=== PATIENT | female | born 1955 | race Caucasian/White ===

== ENCOUNTER 2020-06-24 14:54 | Emergency (ER) | payer MEDICARE, OTHER ==
[2020-06-24 15:21] VITALS: TEMP 98.4
[2020-06-24] MEDS ORDERED: ALUM & MAG HYDROX-SIMETHICONE 30 ML, LIDOCAINE VISCOUS 2% 15 ML PO ONE ×2 (15:24)
--- NOTE | 2020-06-24 15:32 | ED.PDOC ---
History of Present Illness - General Chief Complaint: Chest Pain/AK Stated Complaint: heartburn/nausea Time Seen by Provider: 06/24/20 15:15 Source: patient - History of Present Illness Initial Comments: PATIENT PRESENTS W/ 24 HOUR HX OF BURNING EPIGASTRIC PAIN, NOT RELIEVED WITH ANTACIDS, DENIES HX OF GERD OR SIMILAR SYMPTOMS IN THE PAST, NO HEALTH PROBLEMS, NO ROUINE MEDS, +SLIGHT SOB, NO DIAPHORESIS OR NAUSEA. Location: substernal Chest Pain Radiation: no radiation Activities at Onset: none Prior Chest Pain/Cardiac Workup: no prior chest pain Improving Factors: nothing Worsening Factors: nothing Allergies/Adverse Reactions: Allergies NO KNOWN ALLERGY Allergy (Verified 06/24/20 15:23) Home Medications: Ambulatory Orders Omeprazole [Omeprazole Dr] 40 mg PO DAILY #30 cap 06/24/20 Review of Systems - Review of Systems Constitutional: States: no symptoms reported EENTM: States: no symptoms reported Respiratory: States: see HPI. Denies: cough, short of breath Cardiology: States: see HPI Gastrointestinal/Abdominal: States: no symptoms reported Genitourinary: States: no symptoms reported Musculoskeletal: States: no symptoms reported Skin: States: no symptoms reported Neurological: States: no symptoms reported Past Medical History (General) - Patient Medical History Hx Stroke: No Hx of COPD: No Hx Cardiac Disorders: No Hx Hypertension: Yes Hx Gastroesophageal Reflux: Yes - Vaccination History Hx Influenza Vaccination: Yes - Social History Hx Alcohol Use: No - Activities of Daily Living Hospice Agency (if applicable):: None - Female History Patient is a Female of Child Bearing Age (10 -59 yrs old): No Family Medical History - Family History Father Living Status: Physical Exam - Physical Exam General Appearance: Alert, Anxious, No apparent distress Eyes, Ears, Nose, Throat Exam: normal ENT inspection, TMs normal, pharynx normal, scleral icterus (R) Neck: non-tender, full range of motion, supple Respiratory: lungs clear, normal breath sounds, no respiratory distress, respiratory distress Cardiovascular/Chest: normal peripheral pulses, regular rate, rhythm, no edema, other - PALPATION OF CHEST REPRODUCES HER PAIN Gastrointestinal/Abdominal: normal bowel sounds, non tender, soft Departure - Departure Clinical Impression: Chest pain Qualifiers: Chest pain type: unspecified Qualified Code(s): R07.9 - Chest pain, unspecified Time of Disposition: 17:49 Disposition: Discharge to Home or Self Care Condition: Good Departure Forms: ED Discharge - Pt. Copy, Patient Portal Self Enrollment Instructions: DI for Chest Pain, Acid Reflux and Gastroesophageal Reflux Disease in Adults, Chest Pain Referrals: MICHELLE PIRES [Primary Care Provider] - 1-2 Weeks Prescriptions: Omeprazole [Omeprazole Dr] 40 mg PO DAILY #30 cap Home Medications: Ambulatory Orders Omeprazole [Omeprazole Dr] 40 mg PO DAILY #30 cap 06/24/20 Additional Instructions: RECOMMEND FOLLOW UP WITH GENERAL SURGERY OR GI MEDICINE FOR UPPER ENDOSCOPY (EGD).
--- NOTE | 2020-06-24 15:34 | RAD ---
EXAM DESCRIPTION: Chest,1 View x-ray CLINICAL HISTORY: 65 years Female, chest pain COMPARISON: None. IMPRESSION: Heart size and pulmonary vascularity are within normal limits. There is no airspace consolidation, pleural effusion, or pneumothorax. No acute osseous abnormality. Electronically signed by: Silverio Perera MD 06/24/2020 3:32 PM [facility]
[2020-06-24] MEDS ORDERED: HYDROmorphone HCL INJ 2 MG/ML VIAL IV ONE (16:14)
[2020-06-24] MEDS ORDERED: ONDANSETRON INJ 4 MG/2 ML VIAL IV ONE (16:15)
--- NOTE | 2020-06-24 17:05 | CT ---
EXAM DESCRIPTION: CTA Chest CLINICAL HISTORY: 65 years, Female, R/O PE, AAA COMPARISON: None TECHNIQUE: CT pulmonary angiography is performed with thin-section multi detector technique during rapid bolus administration of routine adult dose of nonionic iodinated IV contrast media. Multiplanar reformatted images are reviewed along with source images and maximum intensity projection three dimensional images which were created on a separate dedicated workstation and are stored in the patient's medical record. FINDINGS: Normal enhancement of pulmonary arteries. Normal enhancement of cardiac chambers. Early enhancement of the aorta is negative for aneurysm or dissection. Lung window images are negative for infiltrate. Discoid atelectasis or linear scarring in the medial left lung base. No worrisome mass or nodule. In the upper abdomen, upper abdominal viscera are unremarkable. No chest wall mass or rib fracture. No axillary or lower cervical adenopathy. Breast implants appear intact. Coronal and sagittal reformatted MIP images confirm normal pulmonary arterial enhancement. No aortic aneurysm or dissection. IMPRESSION: Negative for evidence of pulmonary embolic disease. This exam was performed according to our departmental dose-optimization program, which includes automated exposure control, adjustment of the mA and/or kV according to patient size and/or use of iterative reconstruction technique. Total DLP equals 612.9 mGycm. Electronically signed by: Boo Chavez MD 06/24/2020 5:03 PM MARKETING EFFECTIVENESS MANAGER
[2020-06-24] MEDS ORDERED: PANTOPRAZOLE SODIUM TAB 40 MG PO ONE (17:53)
[2020-06-24 18:07] VITALS: BP 134/99; O2SAT 98
== END 2020-06-24 18:01 | disposition home or self-care (01) ==
LOC: ER 14:54
DX: R07.9 Chest pain, unspecified (principal); I10 Essential (primary) hypertension; R06.02 Shortness of breath
CPT/HCPCS: 36415; 71045; 71275; 80053; 84484; 85025; 85379; 93005; J1170; J2405

== ENCOUNTER 2020-07-30 13:23 | Emergency (ER) | payer MEDICARE, OTHER ==
--- NOTE | 2020-07-30 13:22 | US ---
EXAM DESCRIPTION: Venous,Lower Extremity LT: ULTRASOUND. CLINICAL HISTORY: SWELLING LOWER LEG COMPARISON: None Available. TECHNIQUE: Seals-scale and doppler sonographic evaluation of the deep venous system of the left lower extremity. FINDINGS: Doppler and grayscale evaluation of the left lower extremity shows diminished or absent waveforms in the left popliteal artery, left posterior tibial artery, and left peroneal artery with lack of augmentation. Echogenic thrombus in these veins which are not compressible with the transducer. Doppler evaluation shows normal color flow and normal phasicity and augmentation of the left common femoral vein, tab femoral vein, and greater saphenous vein, junction with the CFV. These left lower extremity deep veins were completely compressible; normal occlusion with transducer pressure. Seals-scale survey showed no echogenic thrombus within these veins. Subcutaneous adipose tissue with interstitial edema. IMPRESSION: 1. Duplex ultrasound evaluation of the left lower extremity deep venous system demonstrating thrombosis from the left popliteal vein down to the left posterior tibial vein and left peroneal vein.. Associated subcutaneous adipose tissue edema in the left calf. 2. The more proximal left lower extremity deep veins show no evidence of thrombosis. . CRITICAL COMMUNICATION: The critical value was communicated directly by Dr. Cardoso via phone call, with AMINA HayP, at approximately 1315 hours, on July 30, 2020. Ms. Valladares will contact the patient directly for further instructions. Electronically signed by: Jesus Manuel Cardoso MD 07/30/2020 1:21 PM [facility]
--- NOTE | 2020-07-30 15:43 | CT ---
CT CHEST ANGIOGRAPHY WITH IV CONTRAST HISTORY: 65 years Female LLE DVT PER U/S, SOB. EVAL FOR P.E. COMPARISON: June 24, 2020. TECHNIQUE: Helical tomographic images of the chest were obtained after the administration of intravenous contrast per facility angiogram protocol. 3-D MIP reconstructions were created. Coronal and sagittal reformatted images were also provided. This exam was performed according to our departmental dose-optimization program, which includes automated exposure control, adjustment of the mA and/or kV according to patient size and/or use of iterative reconstruction technique. FINDINGS: Diagnostic quality: Adequate. Pulmonary arteries: Scattered emboli within the bilateral segmental arteries as well as the right middle and lower lobe arteries. The majority of these thrombi appear incompletely occlusive. Lungs and central airways: No consolidation or airspace disease identified. Pleura: No pleural effusion or pleural thickening. Heart/pericardium: Heart size is normal. Slight bowing of the intraventricular septum suggests possible right heart strain. Trace pericardial fluid. Mediastinum/haley: No mediastinal or hilar mass or lymphadenopathy. Systemic vasculature: Minimal scattered atherosclerotic changes. Regional surrounding soft tissues: No acute process detected. Bilateral breast implants. Bones: No acute process detected. Included abdomen: There is diffuse hypoattenuation of the liver, compatible with hepatic steatosis. No acute process detected. IMPRESSION: Scattered bilateral pulmonary emboli with suspicion of right heart strain. Finding was relayed to the referring provider, Dr. Monroy, at approximately 3:40 PM on 07/30/2020. Hepatic steatosis. Electronically signed by: Martin Bennett MD 07/30/2020 3:41 PM SUPER[employer]OR [employer]
--- NOTE | 2020-07-30 15:48 | ED.PDOC ---
History of Present Illness - General Chief Complaint: General Stated Complaint: DVT LLE,sent for evaluation Time Seen by Provider: 07/30/20 13:46 Source: patient Exam Limitations: no limitations - History of Present Illness Initial Comments: RECENT LONG CAR RIDE TO [place]. 1 WK MILD DYSPNEA WITH EXERTION AND FATIGUE, L FOOT AND ANKLE PAIN. WENT TO URGENT CARE TODAY, U/S SHOWED DVT OF L POPLITEAL, POST TIBIAL, AND PERONAL VEINS. SENT TO ER TO EVAL FOR P.E. Severity: moderate Improving Factors: immobilization Worsening Factors: movement Associated Symptoms: shortness of breath, weakness Allergies/Adverse Reactions: Allergies Codeine Allergy (Verified 07/30/20 13:42) Home Medications: Ambulatory Orders Apixaban [Eliquis] 10 mg PO BID 3 Days #6 tab 07/30/20 Review of Systems - Review of Systems Constitutional: States: no symptoms reported EENTM: States: no symptoms reported Respiratory: States: short of breath. Denies: cough Cardiology: Denies: chest pain, palpitations Gastrointestinal/Abdominal: Denies: abdominal pain, nausea Genitourinary: States: no symptoms reported Musculoskeletal: States: other - LLE PAIN. Denies: back pain, neck pain Skin: States: no symptoms reported. Denies: change in color Neurological: States: no symptoms reported Endocrine: States: no symptoms reported Hematologic/Lymphatic: States: no symptoms reported All other Systems: Reviewed and Negative Past Medical History (General) - Patient Medical History Hx Stroke: No Hx of COPD: No Hx Cardiac Disorders: No Hx Congestive Heart Failure: No Hx Hypertension: Yes Hx Diabetes: No Hx Gastroesophageal Reflux: Yes Surgical History: appendectomy - Vaccination History Hx Influenza Vaccination: No Hx Pneumococcal Vaccination: No - Social History Hx Tobacco Use: No Hx Alcohol Use: No Family Medical History - Family History Father Living Status: Physical Exam - Physical Exam General Appearance: Alert, No apparent distress Eye Exam: bilateral normal Ears, Nose, Throat: hearing grossly normal, normal ENT inspection Neck: non-tender, full range of motion Respiratory: lungs clear, normal breath sounds, no respiratory distress, no accessory muscle use Cardiovascular/Chest: normal peripheral pulses, no gallop, no JVD, no murmur Peripheral Pulses: radial,right: 2+, radial,left: 2+, femoral,right: 2+, femoral,left: 2+, popliteal,right: 2+, popliteal,left: 2+, dorsalis pedis,right: 2+, dorsalis pedis,left: 1+, posterior tibialis,right: 2+, posterior tibialis,left: 0 Gastrointestinal/Abdominal: non tender, soft Rectal Exam: deferred Back Exam: normal inspection Extremity: no calf tenderness, pedal edema, other - L ANKLE MILDLY EDEMATOUS. NO STREAKING. POS ABE'S SIGN LEFT. Neurologic: no motor/sensory deficits, alert, normal mood/affect Skin Exam: normal color, warm/dry Lymphatic: no adenopathy Progress - Progress Progress: 07/30/20 15:[address] POS FOR P.E. EKG SHOWS PAC AND PVC'S. I TALKED WITH VASCULAR SURGERY, DR. OTERO, FOR RECOMMENDATIONS. SINCE SHE IS STABLE (NO TACHYCARDIA, NO TACHYPNEA, NO HYPOXIA), SHE DOES NOT NEED ADMISSION AND WE WILL START ELIQUIS TODAY (10 MG BID X 7 D, THEN 5 MG BID). SHE WILL F/U WITH DR. RANDLE TOMORROW AM TO MANAGE. I GAVE RETURN PRECAUTIONS. 07/30/20 16:09 DIALUDID FOR FOOT PAIN FROM DVT, ALEVE DID NOT HELP. (PT STATES SHE IS NOT ALLERGIC TO CODEINE, JUST UPSET STOMACH IF TAKES W/O FOOD.) PTT AND INR WNL. Departure - Departure Clinical Impression: Pulmonary embolism Qualifiers: Pulmonary embolism type: multiple subsegmental (without acute cor pulmonale) Qualified Code(s): I26.94 - Multiple subsegmental pulmonary emboli without acute cor pulmonale DVT (deep venous thrombosis) Qualifiers: DVT location: lower extremity Affected thrombotic vein of extremity: popliteal Chronicity: acute Laterality: left Qualified Code(s): I82.432 - Acute embolism and thrombosis of left popliteal vein Disposition: Discharge to Home or Self Care Condition: Good Departure Forms: ED Discharge - Pt. Copy, Patient Portal Self Enrollment Instructions: Pulmonary Embolism (Blood Clot in the Lungs) (DC) Diet: resume usual diet Activity: walking as tolerated Referrals: Adria Randle MD [Provisional Staff] - 07/31/20 Prescriptions: Apixaban [Eliquis] 10 mg PO BID 3 Days #6 tab Home Medications: Ambulatory Orders Apixaban [Eliquis] 10 mg PO BID 3 Days #6 tab 07/30/20
[2020-07-30] MEDS ORDERED: HYDROmorphone HCL INJ 2 MG/ML VIAL IV ONE (16:07)
[2020-07-30] MEDS ORDERED: APIXABAN 5 MG TAB PO ONE (16:11)
[2020-07-30 16:43] VITALS: BP 159/106; TEMP 99.6; O2SAT 94
== END 2020-07-30 16:43 | disposition home or self-care (01) ==
LOC: ER 13:23
DX: I26.94 Multiple subsegmental thrombotic pulmonary emboli without acute cor pulmonale (principal); I82.432 Acute embolism and thrombosis of left popliteal vein; I49.1 Atrial premature depolarization; I49.3 Ventricular premature depolarization; I10 Essential (primary) hypertension; K21.9 Gastro-esophageal reflux disease without esophagitis; Z90.49 Acquired absence of other specified parts of digestive tract; Z88.5 Allergy status to narcotic agent
CPT/HCPCS: 36415; 71275; 80053; 85025; 85379; 85610; 85730; 93005; 93971; J1170

== ENCOUNTER → 2020-08-01 | Outpatient (CLI) | payer MEDICARE, OTHER | LOC: ECHO 13:01 | PROVIDERS: ATTEND Family Medicine Sports Medicine | DX: I26.94 Multiple subsegmental thrombotic pulmonary emboli without acute cor pulmonale (principal) ==

== ENCOUNTER → 2020-08-30 | Outpatient (CLI) | payer MEDICARE, OTHER ==
--- NOTE | 2020-08-30 10:50 | CT ---
EXAM DESCRIPTION: CTA Chest CLINICAL HISTORY: 65 years, Female, ACUTE EMBOLISM COMPARISON: Previous CTA chest dated July 30, 2020 TECHNIQUE: CT pulmonary angiography is performed with thin-section multi detector technique during rapid bolus administration of Isovue 300 IV contrast media. Multiplanar reformatted images are reviewed along with source images and maximum intensity projection three dimensional images which were created on a separate dedicated workstation and are stored in the patient's medical record. FINDINGS: Compared to the previous study, the pulmonary emboli have decreased in size. Emboli appear wall adherent proximally but still centrally situated more distally in the right lower lobe. Smaller emboli previously seen in the left lower lobe and lingular regions appear to have resolved. Small embolus remains in the left upper lobe anteriorly. Right ventricle remains large but the interventricular septum appears to bow toward the right ventricle suggesting relief of previous right heart strain. Enlarged left pulmonary artery consistent with pulmonary hypertension or pulmonic valvular disease. Correlate with other studies. Normal enhancement of cardiac chambers. Early enhancement of the aorta is negative for aneurysm or dissection. Lung window images are negative for infiltrate. No worrisome mass or nodule. In the upper abdomen, upper abdominal viscera are unremarkable. No chest wall mass or acute rib fracture. Old healed rib fractures on the left. No axillary or lower cervical adenopathy. Bilateral breast implants appear intact. Symmetrical breast tissue. Coronal and sagittal reformatted images and MIP images confirm normal pulmonary arterial enhancement. IMPRESSION: Improved appearance of bilateral pulmonary embolic disease compared to previous study. This exam was performed according to our departmental dose-optimization program, which includes automated exposure control, adjustment of the mA and/or kV according to patient size and/or use of iterative reconstruction technique. Total DLP equals 724.73 mGycm. Electronically signed by: Boo Chavez MD 08/30/2020 10:48 AM HR ANALYST
== END ==
LOC: GMA CAST 09:53
PROVIDERS: ATTEND Family Medicine Sports Medicine
DX: I82.622 Acute embolism and thrombosis of deep veins of left upper extremity (principal); I26.99 Other pulmonary embolism without acute cor pulmonale